=== PATIENT | male | born 2000 | race Caucasian/White ===

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

== ENCOUNTER → 2022-02-14 | Outpatient (CLI) | payer BC ==
--- NOTE | 2022-02-14 16:40 | US ---
EXAMINATION TYPE: US scrotum with doppler. Grayscale and color Doppler Duplex imaging performed of christiano walsh scrotum. DATE OF EXAM: 02/14/2022 COMPARISON: NONE CLINICAL HISTORY: N50.819 TESTICULAR PAIN, UNSPECIFIED. right testicular pain after lifting heavy obj ect EXAM MEASUREMENTS: TESTICLES: Right Testicle: 4.6 x 3.1 x 2.5 cm Left Testicle: 4.5 x 2.8 x 2.3 cm EPIDIDYMIS HEAD: Right Epididymis: 0.9 cm Left Epididymis: 0.8 cm Doppler performed to assess for testicular vascularity; good bilateral color flow and waveforms are s een. There is no evidence of testicular torsion. Presence of hydroceles: mild amount of medial fluid with mobile debris within Presence of varicoceles: no echogenic bowel versus fat containing hernia is possible on the right inferolateral scrotal sac IMPRESSION: 1. Hydrocele present with some internal debris. 2. Right inguinal hernia is suspected. Consider additional workup.
== END | disposition home or self-care (01) ==
LOC: RADUSWWP 08:53
PROVIDERS: ATTEND Family Medicine
DX: N50.819 Testicular pain, unspecified (principal)
CPT/HCPCS: 76870; 93975